=== PATIENT | female | born 1940 | race Caucasian/White ===

== ENCOUNTER 2022-04-11 14:24 | Emergency (ER) | payer MEDICARE ==
[2022-04-11 15:30] LABS: INFLUENZA A NAA NEGATIVE (NEGATIVE)
[2022-04-11 15:33] LABS: CORONAVIRUS 2019 SARS-COV-2 POSITIVE (NEGATIVE)
[2022-04-11 15:47] LABS: BASOPHIL 0.3 % (0-2); EOSINOPHIL 0.3 % (0-7); HCT 35.2 % (37.0-47.0); LYMPHOCYTE 41.2 % (15-48); MCH 29.9 pg (25.0-31.0); MCHC 34.1 g/dL (32.0-36.0); MCV 87.8 fL (78.0-100.0); MONOCYTE 7.2 % (0-12); MPV 11.6 fL (6.0-9.5); NEUTROPHIL 50.7 % (41-80); NRBC 0; PLT 141 K/uL (150-400); RBC 4.01 M/uL (4.20-5.40); RDW 13.8 % (11.5-14.0); WBC 3.6 K/uL (4.0-10.5)
[2022-04-11 15:51] LABS: INR 0.96 (0.9-1.2); PROTHROMBIN TIME 12.5 SECONDS (11.9-13.9); PTT 26.3 SECONDS (24.9-34.6)
[2022-04-11 16:02] LABS: ALBUMIN 3.3 g/dL (3.4-5.0); BILIRUBIN - TOTAL 0.8 mg/dL (0.2-1.0); BUN/CREAT RATIO (CALC) 10.6 RATIO; CREATININE 1.04 mg/dL (0.51-0.95); POTASSIUM 3.7 mmol/L (3.5-5.1); TOTAL PROTEIN 6.3 g/dL (6.4-8.2)
[2022-04-11] MEDS ORDERED: PAXLOVID 150-11 EACH PO (16:43)
== END 2022-04-11 17:04 | disposition home or self-care (01) ==
LOC: FER 14:24
PROVIDERS: Emergency Medicine
DX: U07.1 COVID-19 (principal); I10 Essential (primary) hypertension; Z28.310 Unvaccinated for COVID-19; Z88.0 Allergy status to penicillin
CPT/HCPCS: 36415; 71045; 80053; 84484; 85025; 85610; 85730; 93005; J2310; U0002